=== PATIENT | male | born 1995 | race Caucasian/White ===

== ENCOUNTER 2022-02-04 07:33 | Outpatient (CLI) | payer OTHER | END 2022-02-04 07:34 | disposition critical access hospital (66) | LOC: EMS 07:33 | DX: S01.01XA Laceration without foreign body of scalp, initial encounter (principal); W10.8XXA Fall (on) (from) other stairs and steps, initial encounter; Y92.511 Restaurant or cafe as the place of occurrence of the external cause; Y99.0 Civilian activity done for income or pay | CPT/HCPCS: A0425; A0429 ==

== ENCOUNTER 2022-02-04 08:09 | Emergency (ER) | payer OTHER ==
[2022-02-04] MEDS ORDERED: ACETAMINOPHEN 500 MG TABLET PO STA (08:17)
[2022-02-04] MEDS ORDERED: IBUPROFEN 800 MG TABLET PO STA (08:17)
--- NOTE | 2022-02-04 08:18 | ED Physician Documentation ---
PD HPI Fall - Stated complaint Stated Complaint: HEAD LAC/GLF - History obtained from History obtained from: Patient - History of Present Illness Mechanism of injury: Lost balance (was going down stairs with loaded handtruck and fell backwards, striking gluteal and then back of head. No LOC.) Review of Systems Constitutional: denies: Fever Nose: denies: Rhinorrhea / runny nose, Congestion Throat: denies: Sore throat Cardiac: denies: Chest pain / pressure Respiratory: denies: Cough GI: denies: Abdominal Pain, Nausea, Vomiting Musculoskeletal: denies: Neck pain, Back pain Neurologic: reports: Headache (mild in area of injury. not diffuse.) PD PAST MEDICAL HISTORY - Past Medical History Past Medical History: No - Allergies Allergies/Adverse Reactions: Allergies Allergy/AdvReac Type Severity Reaction Status Date / Time No Known Drug Allergies Allergy Verified 02/04/22 08:19 PD ED PE NORMAL - Vitals Vital signs reviewed: Yes - General General: Alert and oriented X 3, No acute distress, Well developed/nourished - HEENT HEENT: PERRL, EOMI, Pharynx benign, Dentition benign, Other (back of head with vertical laceration to fatty tissue layer with just mild bleeding. No FB. ) - Neck Neck: Supple, no meningeal sign, No bony TTP, No adenopathy - Cardiac Cardiac: RRR, No murmur - Respiratory Respiratory: Clear bilaterally - Abdomen Abdomen: Normal bowel sounds, Soft, Non tender - Back Back: No spinal TTP (there is some tenderness without palpable deformity at coccygeal end. No swelling. Ischial rami areas not tender. ) - Derm Derm: Normal color, Warm and dry - Neuro Neuro: Alert and oriented X 3, No motor deficit, No sensory deficit, Normal speech Eye Opening: Spontaneous Motor: Obeys Commands Verbal: Oriented GCS Score: 15 - Psych Psych: Normal mood, Normal affect Results - Vitals Vitals: Oxygen O2 Source Room air - Rads (name of study) head CT Radiology: Prelim report reviewed (no acute intracranial process), See rad report Procedures - Laceration (location) occipital lacera Length in cm: 8.2 Wound type: Linear, Into subcut fat, Clean Neurovascular status: Sensory intact Anesthesia: Marcaine 0.5% with epi Wound preparation: Irrigated copiously NS, Wound explored, To the base Skin layer closure: Salomón, Other (13 salomón) Other: Patient tolerated well, No complications, Neurovascular intact, Dressing applied, Tetanus booster given PD MEDICAL DECISION MAKING - ED course Complexity details: reviewed results, considered differential, d/w patient Departure - Departure Disposition: 01 Home, Self Care Clinical Impression: Focal contusion of occipital lobe Fall from slip, trip, or stumble Qualifiers: Encounter type: initial encounter Qualified Code(s): W01.0XXA - Fall on same level from slipping, tripping and stumbling without subsequent striking against object, initial encounter Occipital scalp laceration Qualifiers: Encounter type: initial encounter Qualified Code(s): S01.01XA - Laceration without foreign body of scalp, initial encounter Coccygeal contusion Qualifiers: Encounter type: initial encounter Qualified Code(s): S30.0XXA - Contusion of lower back and pelvis, initial encounter Condition: Stable Record reviewed to determine appropriate education?: Yes Instructions: ED Laceration Scalp Stitch Or Stap Comments: It is okay to wash and shower. Clean off the wound twice a day with soap and water, or peroxide and water. Apply some antibiotic ointment to it to keep it moist. Also to watch for signs of infection such as purulence, redness or increasing pain. Return to your primary care or the ER at the specified time for suture removal. Staple removal 10 to 12 days. You will likely be sore well for the next several days or more. I would suggest using some ibuprofen 3 times daily 600 to 800 mg for the next 5 or 6 days. Also Tylenol/acetaminophen every 4-6 hours regularly for several days as well. After 3 to 5 days, reasonable to revert to just as needed for medications. Activity as tolerated. You do not have any concussive symptoms so activity should be okay. Your head CT does not show any fractures or bleeding inside. You have 13 salomón along the 3-1/4 inch laceration. Discharge Date/Time: 02/04/22 09:57
--- NOTE | 2022-02-04 09:00 | CT Report ---
PROCEDURE: HEAD WO INDICATIONS: fall, struck head/lac TECHNIQUE: Noncontrast 4.5 mm thick angled axial sections acquired from the foramen magnum to the vertex. For r adiation dose reduction, the following was used: automated exposure control, adjustment of mA and/or kV according to patient size. COMPARISON: None. FINDINGS: Image quality: Excellent. CSF spaces: Basal cisterns are patent. No extra-axial fluid collections. Ventricles are normal in size and shape. Brain: No midline shift. No intracranial masses or hemorrhage. Zacarias-white matter interface is norm al. Skull and face: Calvarium and visualized facial bones are intact, without suspicious lesions. Sinuses: Visualized sinuses and mastoids are clear. IMPRESSION: No acute intracranial process. Reviewed by: Love Nieto MD on 02/04/2022 8:59 AM PDT Approved by: Love Nieto MD on 02/04/2022 8:59 AM PDT Station ID: [id number]
[2022-02-04] MEDS ORDERED: TETANUS/DIPHTHERIA/PERTUSSIS 0.5 ML SYRINGE IM ONE (09:24)
[2022-02-04 09:52] VITALS: BP 124/92
== END 2022-02-04 09:57 | disposition home or self-care (01) ==
LOC: ED 08:09
DX: S01.01XA Laceration without foreign body of scalp, initial encounter (principal); S30.0XXA Contusion of lower back and pelvis, initial encounter; W10.9XXA Fall (on) (from) unspecified stairs and steps, initial encounter; Z23 Encounter for immunization; Z71.85 Encounter for immunization safety counseling
CPT/HCPCS: 1040M; 12004; 70450; 90471; 90715; 99282; 99284; A9270